=== PATIENT | female | born 1990 | race Two or more races ===

== ENCOUNTER 2018-07-26 13:48 | Emergency (ER) | payer SELFPAY, OTHER ==
[2018-07-26 17:52] LABS: ADD MAN DIFF? NO
[2018-07-26 17:57] LABS: WHITE BLOOD COUNT 13.6 10^3/ul (4.8-10.8)
[2018-07-26 17:57] LABS: BASOPHILS % 0.3 % (0.0-2.0); EOSINOPHILS # 1.2 10^3/ul (0.0-0.5); EOSINOPHILS % 8.7 % (0.0-7.0); HEMOGLOBIN 12.6 g/dl (12.0-16.0); LYMPHOCYTES # 3.7 10^3/ul (0.8-2.9); MEAN CORPUSCULAR HEMOGLOBIN 27.6 pg (29.0-33.0); MEAN CORPUSCULAR HGB CONC 33.2 g/dl (32.0-37.0); MEAN CORPUSCULAR VOLUME 83.3 fl (82.0-101.0); MEAN PLATELET VOLUME 10.7 fl (7.4-10.4); MONOCYTE # 1.3 10^3/ul (0.3-0.9); MONOCYTES % 9.6 % (0.0-11.0); NEUTROPHIL # 7.3 10^3/ul (1.6-7.5); PLATELET COUNT 271 10^3/UL (140-415); RED BLOOD COUNT 4.56 10^6/ul (4.20-5.40); RED CELL DISTRIBUTION WIDTH 13.6 % (11.5-14.5)
[2018-07-26 18:11] LABS: ADD UMIC YES; UR ASCORBIC ACID NEGATIVE (NEGATIVE); UR BILIRUBIN (Dip) NEGATIVE (NEGATIVE); UR BLOOD (Dip) 1+ mg/dL (NEGATIVE); UR CLARITY CLEAR (CLEAR); UR COLOR YELLOW (YELLOW); UR GLUCOSE (Dip) 1+ mg/dL (NEGATIVE); UR KETONES (Dip) NEGATIVE (NEGATIVE); UR LEUKOCYTE ESTERASE (Dip) NEGATIVE Leu/ul (NEGATIVE); UR NITRITE (Dip) NEGATIVE (NEGATIVE); UR RBC 8 /HPF (0-5); UR SPECIFIC GRAVITY (Dip) 1.016 (1.003-1.030); UR SQUAMOUS EPITHELIAL CELL FEW /HPF (FEW); UR TOTAL PROTEIN (Dip) NEGATIVE (NEGATIVE); UR UROBILINOGEN (Dip) NEGATIVE (NEGATIVE); UR WBC 1 /HPF (0-5)
[2018-07-26 18:24] LABS: ALANINE AMINOTRANSFERASE 123 IU/L (13-69); ALBUMIN 4.2 g/dl (3.3-4.9); ALBUMIN/GLOBULIN RATIO 1.35; ALKALINE PHOSPHATASE 85 IU/L (42-121); ANION GAP 7 (5-13); ASPARTATE AMINO TRANSFERASE 82 IU/L (15-46); BILIRUBIN,INDIRECT 0.1 mg/dl (0-1.1); BILIRUBIN,TOTAL 0.1 mg/dl (0.2-1.3); BLOOD UREA NITROGEN 4 mg/dl (7-20); CALCIUM 9.4 mg/dl (8.4-10.2); CARBON DIOXIDE 29 mmol/L (21-31); CHLORIDE 101 mmol/L (97-110); CREATININE 0.39 mg/dl (0.44-1.00); Estimated GFR > 60 mL/min (>60); GLUCOSE 126 mg/dl (70-220); LIPASE 69 U/L (23-300); POTASSIUM 3.8 mmol/L (3.5-5.1); SODIUM 137 mmol/L (135-144); TOTAL PROTEIN 7.3 g/dl (6.1-8.1)
== END 2018-07-26 20:19 | disposition home or self-care (01) ==
LOC: FTE 13:48
DX: O26.891 Other specified pregnancy related conditions, first trimester (principal); R10.2 Pelvic and perineal pain; O99.89 Other specified diseases and conditions complicating pregnancy, childbirth and the puerperium; R05 Cough; Z3A.00 Weeks of gestation of pregnancy not specified
CPT/HCPCS: 36415; 76801; 76817; 80053; 81001; 81025; 83690; 84702; 85025; 99284-25

== ENCOUNTER 2019-03-27 13:40 | Inpatient (IN) | payer MEDICAID ==
[2019-03-27] MEDS ORDERED: BUTORPHANOL 2 MG INJ IV (20:00)
[2019-03-27] MEDS ORDERED: MISOPROSTOL 200 MCG TAB PR (20:00)
[2019-03-27] MEDS ORDERED: IBUPROFEN 600 MG TAB PO (20:00)
[2019-03-27] MEDS ORDERED: METHYLERGONOVINE 0.2 MG INJ IM (20:00)
[2019-03-27] MEDS ORDERED: CARBOPROST 250 MCG INJ IM (20:00)
[2019-03-27] MEDS ORDERED: OXYTOCIN 30 UNITS/LR 500 ML IV (20:00)
[2019-03-27] MEDS: LACTATED RINGER'S 1,000 ML IV (21:30)
[2019-03-27] MEDS: AMPICILLIN 2 GM/NS (PMX) 100 ML IV (21:30)
[2019-03-27] MEDS: MISOPROSTOL 50 MCG CAPSULE PO (21:31)
[2019-03-27 21:32] LABS: ADD MAN DIFF? NO
[2019-03-27 21:37] LABS: WHITE BLOOD COUNT 11.5 10^3/ul (4.8-10.8)
[2019-03-27 21:37] LABS: BASOPHILS % 0.2 % (0.0-2.0); EOSINOPHILS # 0.2 10^3/ul (0.0-0.5); EOSINOPHILS % 1.7 % (0.0-7.0); HEMATOCRIT 38.1 % (37.0-47.0); HEMOGLOBIN 12.2 g/dl (12.0-16.0); LYMPHOCYTES # 3.4 10^3/ul (0.8-2.9); LYMPHOCYTES % 29.6 % (15.0-51.0); MEAN CORPUSCULAR HEMOGLOBIN 27.2 pg (29.0-33.0); MEAN PLATELET VOLUME 11.7 fl (7.4-10.4); MONOCYTE # 0.6 10^3/ul (0.3-0.9); NEUTROPHIL # 7.3 10^3/ul (1.6-7.5); NEUTROPHILS % 63.2 % (39.0-77.0); PLATELET COUNT 257 10^3/UL (140-415); RED BLOOD COUNT 4.48 10^6/ul (4.20-5.40); RED CELL DISTRIBUTION WIDTH 14.5 % (11.5-14.5)
[2019-03-27 21:57] LABS: INR 0.88; PT RATIO 0.9
[2019-03-27 21:58] LABS: PARTIAL THROMBOPLASTIN TIME 27.9 Sec (23.0-35.0)
[2019-03-28 00:49] LABS: HEPATITIS B SURFACE ANTIGEN NEGATIVE (NEGATIVE)
[2019-03-28] MEDS: MISOPROSTOL 50 MCG CAPSULE PO ×5 (01:26→18:08)
[2019-03-28] MEDS: AMPICILLIN 1 GM/NS (PMX) 50 ML IV ×6 (01:27→20:41)
[2019-03-28] MEDS: LACTATED RINGER'S 1,000 ML IV ×3 (05:01→20:41)
[2019-03-28 15:36] LABS: RAPID PLASMA REAGIN NONREACTIVE (NR)
[2019-03-29] MEDS: AMPICILLIN 1 GM/NS (PMX) 50 ML IV ×6 (01:04→22:04)
[2019-03-29] MEDS: LACTATED RINGER'S 1,000 ML IV ×3 (04:55→22:07)
[2019-03-29] MEDS: OXYTOCIN 30 UNITS/LR 500 ML IV (21:00)
[2019-03-30] MEDS: AMPICILLIN 1 GM/NS (PMX) 50 ML IV ×6 (02:58→21:58)
[2019-03-30] MEDS: LACTATED RINGER'S 1,000 ML IV ×2 (06:56→15:58)
[2019-03-30] MEDS ORDERED: ONDANSETRON 4 MG INJ IV (09:00)
[2019-03-30] MEDS ORDERED: NALOXONE (0.4 MG/ML) INJ IV (12:00)
[2019-03-30] MEDS: FENTAnyl 2MCG/ML-ROPIV 0.2% 100 ML BAG EPI ×2 (13:14→19:27)
[2019-03-31] MEDS: LACTATED RINGER'S 1,000 ML IV ×4 (00:15→13:55)
[2019-03-31] MEDS: AMPICILLIN 1 GM/NS (PMX) 50 ML IV ×6 (00:26→18:23)
[2019-03-31] MEDS: FENTAnyl 2MCG/ML-ROPIV 0.2% 100 ML BAG EPI ×3 (03:56→17:42)
[2019-03-31] MEDS: LACTATED RINGER'S 1,000 ML IV* (08:10)
[2019-03-31] MEDS: OXYTOCIN 30 UNITS/LR 500 ML IV ×2 (20:02→20:03)
[2019-03-31] MEDS: LIDOCAINE 1% (MPF) 30 ML INJ INJ (20:04)
[2019-03-31] MEDS: MINERAL OIL LIGHT 10 ML VIAL TOP (20:05)
[2019-03-31] MEDS: KETOROLAC 30 MG INJ IV (21:58)
[2019-03-31] MEDS ORDERED: ZOLPIDEM 5 MG TAB PO (22:00)
[2019-03-31] MEDS ORDERED: OXYTOCIN 30 UNITS/LR 500 ML IV (22:00)
[2019-03-31] MEDS ORDERED: HYDROCODONE/APAP (5/325) TAB PO (22:00)
[2019-03-31] MEDS ORDERED: METHYLERGONOVINE 0.2 MG INJ IM (22:00)
[2019-03-31] MEDS ORDERED: MISOPROSTOL 200 MCG TAB PR (22:00)
[2019-03-31] MEDS ORDERED: CARBOPROST 250 MCG INJ IM (22:00)
[2019-03-31] MEDS: WITCH HAZEL/GLYCERIN PAD PR (22:51)
[2019-03-31] MEDS: ACETAMINOPHEN 500 MG TAB PO (22:51)
[2019-03-31] MEDS: LANOLIN HPA 1 PKT TOP (22:51)
[2019-03-31] MEDS: BENZOCAINE 20% 56 ML SPRAY TOP (22:52)
[2019-03-31] MEDS: IBUPROFEN 600 MG TAB PO (23:39)
[2019-03-31] MEDS: CEPHALEXIN 500 MG CAP PO (23:39)
[2019-04-01] MEDS: HYDROCODONE/APAP (5/325) TAB PO (02:21)
[2019-04-01 04:51] LABS: ADD MAN DIFF? NO
[2019-04-01 05:00] LABS: WHITE BLOOD COUNT 12.7 10^3/ul (4.8-10.8)
[2019-04-01 05:00] LABS: BASOPHILS % 0.2 % (0.0-2.0); EOSINOPHILS # 0.1 10^3/ul (0.0-0.5); EOSINOPHILS % 0.9 % (0.0-7.0); HEMATOCRIT 35.9 % (37.0-47.0); HEMOGLOBIN 11.7 g/dl (12.0-16.0); LYMPHOCYTES # 2.6 10^3/ul (0.8-2.9); LYMPHOCYTES % 20.5 % (15.0-51.0); MEAN CORPUSCULAR HEMOGLOBIN 27.6 pg (29.0-33.0); MEAN CORPUSCULAR HGB CONC 32.6 g/dl (32.0-37.0); MEAN CORPUSCULAR VOLUME 84.7 fl (82.0-101.0); MEAN PLATELET VOLUME 11.8 fl (7.4-10.4); MONOCYTE # 0.8 10^3/ul (0.3-0.9); MONOCYTES % 6.6 % (0.0-11.0); NEUTROPHIL # 9.1 10^3/ul (1.6-7.5); NEUTROPHILS % 71.5 % (39.0-77.0); PLATELET COUNT 225 10^3/UL (140-415); RED BLOOD COUNT 4.24 10^6/ul (4.20-5.40); RED CELL DISTRIBUTION WIDTH 13.8 % (11.5-14.5)
[2019-04-01] MEDS: CEPHALEXIN 500 MG CAP PO ×3 (05:42→17:54)
[2019-04-01] MEDS: IBUPROFEN 600 MG TAB PO ×3 (05:42→17:54)
[2019-04-01] MEDS: MAGNESIUM HYDROXIDE 30ML CUP PO ×2 (09:29→21:00)
[2019-04-01] MEDS: SENNA/DOCUSATE NA (8.6MG/50MG) TAB PO ×2 (09:29→22:00)
[2019-04-01] MEDS: LACTATED RINGER'S 1,000 ML IV* ×3 (13:34→21:34)
[2019-04-02] MEDS: IBUPROFEN 600 MG TAB PO ×4 (00:03→11:23)
[2019-04-02] MEDS: CEPHALEXIN 500 MG CAP PO ×3 (00:03→11:22)
[2019-04-02] MEDS: HYDROCODONE/APAP (5/325) TAB PO (02:00)
[2019-04-02] MEDS: LACTATED RINGER'S 1,000 ML IV* (05:34)
[2019-04-02] MEDS: DIPHTH/TET/ACEL PERTUSS (ADULT) 0.5 ML VIAL IM* (09:00)
[2019-04-02] MEDS: MAGNESIUM HYDROXIDE 30ML CUP PO (09:00)
[2019-04-02] MEDS: MEASLES,MUMPS,RUBELLA VACCINE INJ SC* (09:00)
[2019-04-02] MEDS: VARICELLA VACCINE LIVE/PF 1,350 UNIT/0.5 ML ML SC* (09:00)
[2019-04-02] MEDS: SENNA/DOCUSATE NA (8.6MG/50MG) TAB PO (10:23)
[2019-04-02] MEDS: BENZOCAINE 20% 56 ML SPRAY TOP (10:52)
[2019-04-02] MEDS: WITCH HAZEL/GLYCERIN PAD PR (10:52)
[2019-04-02] MEDS: DIBUCAINE 1% 30 GM OINT TOP (10:52)
== END 2019-04-02 15:30 | disposition home or self-care (01) | DRG 807 ==
LOC: OBT 13:40 → MS1 03-31 22:13 → L-D 13:40 → PP1 04-02 14:35 → L-D 14:24 → OBT 16:00 → L-D 16:00
PROVIDERS: Obstetrics & Gynecology
PROC: 10D07Z6 Extraction of Products of Conception, Vacuum, Via Natural or Artificial Opening (ICD-10-PCS; principal; 2019-03-31)
DX: O69.81X0 Labor and delivery complicated by cord around neck, without compression, not applicable or unspecified (principal); Z37.0 Single live birth; O76 Abnormality in fetal heart rate and rhythm complicating labor and delivery; O36.5930 Maternal care for other known or suspected poor fetal growth, third trimester, not applicable or unspecified; Z3A.39 39 weeks gestation of pregnancy
CPT/HCPCS: 62322; 76815; 76818; 85025; 85610; 85730; 86592; 86850; 86900; 86901; 87340; 88307; 90715; 90716; 99464